=== PATIENT | male | born 1940 | race Caucasian/White ===

== ENCOUNTER 2020-12-07 10:43 | Observation (INO) ==
[2020-12-07 11:28] LABS: Basophils % 0.5 % (0.0-0.8); Eosinophils % 1.1 % (0.00-10.9); Hematocrit 33.1 VOL% (42.0-52.0); Hemoglobin 11.3 GM/DL (14.0-18.0); Immature Granulocytes % 0.5 %; Immature Granulocytes Absolute 0.02 #; Lymphocytes # 1.1 10*3/uL (1.4-4.0); Mean Corpuscular HGB Conc 34.1 GM/DL (32-36); Mean Corpuscular Volume 104.4 FL (87-102); Mean Platelet Volume 10.5 FL (9.6-12.0); Monocytes % 15.8 % (1.7-12.7); Neutrophils % 53.1 % (38.7-73.9); Platelet Count 178 T/CUMM (130-400); Red Blood Count 3.17 MC/CUMM (3.8-5.5); Red Cell Distribution Width 14.1 % (9.3-17.3); White Blood Count 3.7 T/CUMM (4-12)
[2020-12-07 11:40] LABS: Albumin 3.3 G/DL (3.4-5.0); Bilirubin,Total 0.5 MG/DL (0.20-1.00); Calcium 8.6 MG/DL (8.5-10.1); Osmolality,Calculated 273.1 MOS/KG (273-304); Potassium 4.2 MMOL/L (3.5-5.1); Total Protein 6.5 G/DL (6.4-8.2)
[2020-12-07 12:06] LABS: INR 0.9; PT Patient Result 10.5 SECS (10.5-12.0)
[2020-12-07 12:26] LABS: Band Neutrophils 1 % (0-10); Lymphocytes 25 % (20-55); Metamyelocytes 1 %; Nucleated Red Blood Cells 1 (0-5); Partial Thromboplastin Time < 20.0 SECS (23.9-33.8); Segmented Neutrophils 62 % (50-85); Total Cells Counted 100
[2020-12-07 12:29] LABS: Anisocytosis 1+; Atypical Lymphocytes Few; Macrocytosis 1+; Platelet Estimate Adequate
[2020-12-07 12:30] LABS: Polychromasia Few
[2020-12-07] MEDS ORDERED: GLUCAGON 1 MG VIAL IM PRN ×2 (14:01)
[2020-12-07] MEDS ORDERED: DEXTROSE 50% 25 GM/50 ML VIAL IV PRN ×2 (14:01)
[2020-12-07] MEDS ORDERED: ACETAMINOPHEN 325 MG TABLET PO PRN (14:01)
[2020-12-07] MEDS ORDERED: ONDANSETRON 4 MG/2 ML VIAL IV PRN (14:01)
[2020-12-07] MEDS ORDERED: DOCUSATE SODIUM 100 MG CAPSULE PO PRN (14:01)
[2020-12-07] MEDS ORDERED: hydrALAZINE 20 MG/1 ML VIAL IV PRN (14:01)
[2020-12-07 14:15] LABS: Bilirubin,Urine Negative (Negative); Blood, Urine Negative (Negative); Glucose,Urine (UA) Negative (Negative); Hyaline Casts,Urine 5 /LPF (0-3); Ketones,Urine 20 mg/dL (Negative); Mucus,Urine Occasional /LPF (Occasional); Nitrite,Urine Negative (Negative); Protein,Urine 30 MG/DL; RBC,Urine 1 /HPF (0-4); Sperm,Urine Few /HPF (Negative); Urine Appearance CLEAR (Clear); Urine Color Yellow (Yellow); Urine Specific Gravity 1.016 (1.001-1.035); Urine Urobilinogen < 2.0 EU/DL (0.2-1.0)
[2020-12-07] MEDS ORDERED: ENOXAPARIN 40 MG/0.4 ML SYRINGE SUBCUT SCH (14:30)
[2020-12-07] MEDS ORDERED: MAGNESIUM SULF RIDER 2 GM/50 ML PREMIX IV PRN (14:55)
[2020-12-07] MEDS ORDERED: MAGNESIUM SULF RIDER 4 GM/100 ML PREMIX IV PRN (14:55)
[2020-12-07] MEDS ORDERED: LORazepam 2 MG/1 ML VIAL IV PRN (14:57)
[2020-12-07 17:23] LABS: Hematocrit 30.7 VOL% (42.0-52.0); Hemoglobin 10.8 GM/DL (14.0-18.0)
[2020-12-07] MEDS: INSULIN LISPRO 100 UNIT/ML SUBCUT SCH ×2 (17:55→20:58)
[2020-12-07] MEDS: SODIUM CHLORIDE 0.9% 1,000 ML IV SCH (18:02)
[2020-12-07] MEDS: levETIRAcetam 500 MG TABLET PO SCH (20:56)
[2020-12-07] MEDS ORDERED: levETIRAcetam 500 MG TABLET PO SCH (21:00)
[2020-12-08 00:48] LABS: Hematocrit 29.3 VOL% (42.0-52.0)
[2020-12-08] MEDS: ZALEPLON 5 MG CAPSULE PO PRN ×2 (01:45→20:12)
[2020-12-08 05:15] LABS: Basophils % 0.5 % (0.0-0.8); Eosinophils % 0.5 % (0.00-10.9); Hematocrit 29.1 VOL% (42.0-52.0); Hemoglobin 9.9 GM/DL (14.0-18.0); Immature Granulocytes % 0.5 %; Immature Granulocytes Absolute 0.02 #; Lymphocytes # 0.8 10*3/uL (1.4-4.0); Lymphocytes % 20.4 % (21.2-54.2); Mean Corpuscular Volume 104.3 FL (87-102); Monocytes % 11.6 % (1.7-12.7); Neutrophils % 66.5 % (38.7-73.9); Platelet Count 151 T/CUMM (130-400); Red Blood Count 2.79 MC/CUMM (3.8-5.5); Red Cell Distribution Width 14.1 % (9.3-17.3); White Blood Count 3.9 T/CUMM (4-12)
[2020-12-08 05:35] LABS: Albumin 2.8 G/DL (3.4-5.0); Bilirubin,Total 0.6 MG/DL (0.20-1.00); Calcium 8.1 MG/DL (8.5-10.1); Osmolality,Calculated 272.8 MOS/KG (273-304); Potassium 3.5 MMOL/L (3.5-5.1); Risk Ratio 1.88; Total Protein 5.6 G/DL (6.4-8.2); VLDL Cholesterol 10.2 MG/DL
[2020-12-08] MEDS: INSULIN LISPRO 100 UNIT/ML SUBCUT SCH ×4 (08:32→20:21)
[2020-12-08 08:48] LABS: Hematocrit 29.8 VOL% (42.0-52.0); Hemoglobin 10.2 GM/DL (14.0-18.0)
[2020-12-08] MEDS: FOLIC ACID 1 MG TABLET PO SCH (09:26)
[2020-12-08] MEDS: MULTIVITAMIN (CENTRUM) TABLET PO SCH (09:26)
[2020-12-08] MEDS: PANTOPRAZOLE 40 MG TABLET PO SCH (09:27)
[2020-12-08] MEDS: SODIUM CHLORIDE 0.9% 1,000 ML IV SCH ×2 (09:27→20:13)
[2020-12-08] MEDS: THIAMINE 100 MG TABLET PO SCH (09:27)
[2020-12-08] MEDS: levETIRAcetam 500 MG TABLET PO SCH ×2 (09:27→20:12)
[2020-12-08] MEDS: carvediloL 25 MG TABLET PO SCH (17:50)
[2020-12-08] MEDS: MAGNESIUM OXIDE 400 MG TABLET PO SCH (20:12)
[2020-12-08] MEDS ORDERED: SIMVASTATIN 20 MG TABLET PO SCH (21:00)
[2020-12-09] MEDS: INSULIN LISPRO 100 UNIT/ML SUBCUT SCH (07:14)
[2020-12-09 07:22] VITALS: BP 157/69
[2020-12-09] MEDS ORDERED: ASPIRIN EC 81 MG TABLET PO SCH (09:00)
[2020-12-09] MEDS: THIAMINE 100 MG TABLET PO SCH (09:16)
[2020-12-09] MEDS: levETIRAcetam 500 MG TABLET PO SCH (09:16)
[2020-12-09] MEDS: FOLIC ACID 1 MG TABLET PO SCH (09:16)
[2020-12-09] MEDS: MULTIVITAMIN (CENTRUM) TABLET PO SCH (09:17)
[2020-12-09] MEDS: MAGNESIUM OXIDE 400 MG TABLET PO SCH (09:18)
[2020-12-09] MEDS: PANTOPRAZOLE 40 MG TABLET PO SCH (09:19)
[2020-12-09] MEDS: carvediloL 25 MG TABLET PO SCH (09:19)
[2020-12-09] MEDS: SODIUM CHLORIDE 0.9% 1,000 ML IV SCH (11:43)
== END 2020-12-09 11:45 | disposition home or self-care (01) ==
LOC: N.EDINP 10:43 → N.ED 10:43 → N.5E 16:17
PROVIDERS: ADMIT Internal Medicine; ATTEND Internal Medicine

== ENCOUNTER 2021-03-16 14:49 | Inpatient (IN) ==
[2021-03-16 16:01] LABS: ABG Base Excess 6.9 MMOL/L (-2.5-2.5); ABG HCO3 29.7 MMOL/L (20-26); ABG Oxygen Saturation 36.4 % (95-100); ABG PCO2 51.7 MM HG (35-48); ABG PH 7.409 (7.35-7.45); ABG TCO2 30.4 MMOL/L (23-27)
[2021-03-16 16:04] LABS: ABG PO2 26.2 MM HG (80-95)
[2021-03-16 16:05] LABS: Basophils % 0.3 % (0.0-0.8); Eosinophils # 0.1 10*3/uL (0.0-0.87); Eosinophils % 0.7 % (0.00-10.9); Hematocrit 27.7 VOL% (42.0-52.0); Hemoglobin 8.9 GM/DL (14.0-18.0); Immature Granulocytes % 0.4 %; Immature Granulocytes Absolute 0.03 #; Lymphocytes % 13.5 % (21.2-54.2); Mean Corpuscular HGB Conc 32.1 GM/DL (32-36); Mean Corpuscular Volume 94.5 FL (87-102); Mean Platelet Volume 9.4 FL (9.6-12.0); Neutrophils % 76.1 % (38.7-73.9); Platelet Count 222 T/CUMM (130-400); Red Blood Count 2.93 MC/CUMM (3.8-5.5); Red Cell Distribution Width 14.8 % (9.3-17.3); White Blood Count 7.1 T/CUMM (4-12)
[2021-03-16 16:33] LABS: Alanine Aminotransferase 36 U/L (16-61); Albumin 2.9 G/DL (3.4-5.0); Alkaline Phosphatase 77 U/L (45-117); Aspartate Amino Transferase 35 U/L (0-37); Bilirubin,Total < 0.39 MG/DL (0.20-1.00); Blood Urea Nitrogen 26 MG/DL (7-18); Calcium 8.7 MG/DL (8.5-10.1); Carbon Dioxide 30 MMOL/L (21-32); Estimated Glom Filtration Rate 68 ML/MIN; Glucose 120 MG/DL (74-106); Osmolality,Calculated 284.4 MOS/KG (273-304); Potassium 4.2 MMOL/L (3.5-5.1); Sodium 140 MMOL/L (136-145); Total Protein 6.2 G/DL (6.4-8.2)
[2021-03-16] MEDS ORDERED: methylPREDNISolone SOD SUC 125 MG/2 ML VIAL IV STA (17:28)
[2021-03-16] MEDS ORDERED: ALBUTEROL/IPRATROPIUM 3 ML NEB RESP TX STA (17:28)
[2021-03-16] MEDS ORDERED: DEXTROSE 50% 25 GM/50 ML SYRINGE IV PRN (19:47)
[2021-03-16] MEDS ORDERED: GLUCAGON 1 MG VIAL IM PRN ×2 (19:47)
[2021-03-16] MEDS ORDERED: DEXTROSE 50% 25 GM/50 ML VIAL IV PRN (19:47)
[2021-03-16] MEDS ORDERED: ALBUTEROL/IPRATROPIUM 3 ML NEB RESP TX PRN (19:47)
[2021-03-16] MEDS ORDERED: ACETAMINOPHEN 325 MG TABLET PO PRN (19:47)
[2021-03-16] MEDS ORDERED: SIMETHICONE CHEW 125 MG TABLET PO PRN (19:47)
[2021-03-16] MEDS ORDERED: CALCIUM CARBONATE CHEW 500 MG TABLET PO PRN (19:47)
[2021-03-16] MEDS ORDERED: DOCUSATE SODIUM 100 MG CAPSULE PO PRN (19:47)
[2021-03-16] MEDS: INSULIN LISPRO 100 UNIT/ML SUBCUT SCH (21:58)
[2021-03-16] MEDS: ENOXAPARIN 40 MG/0.4 ML SYRINGE SUBCUT SCH (21:59)
[2021-03-17] MEDS: levETIRAcetam 500 MG TABLET PO SCH ×3 (00:25→21:06)
[2021-03-17] MEDS: cefTRIAXone 1,000 MG VIAL IV SCH ×2 (00:28→21:06)
[2021-03-17] MEDS: AZITHROMYCIN INJ 500 MG in SODIUM CHLORIDE 0.9% 250 ML IV SCH ×2 (00:30→21:05)
[2021-03-17] MEDS: ALBUTEROL/IPRATROPIUM 3 ML NEB RESP TX SCH ×4 (01:00→20:10)
[2021-03-17] MEDS: methylPREDNISolone SOD SUC 40 MG/1 ML VIAL IV SCH ×3 (01:51→18:30)
[2021-03-17 05:21] LABS: Basophils % 0.2 % (0.0-0.8); Hematocrit 29.4 VOL% (42.0-52.0); Hemoglobin 9.4 GM/DL (14.0-18.0); Immature Granulocytes % 0.9 %; Immature Granulocytes Absolute 0.05 #; Lymphocytes # 0.5 10*3/uL (1.4-4.0); Lymphocytes % 8.2 % (21.2-54.2); Mean Corpuscular Volume 95.8 FL (87-102); Neutrophils % 88.7 % (38.7-73.9); Platelet Count 222 T/CUMM (130-400); Red Blood Count 3.07 MC/CUMM (3.8-5.5); Red Cell Distribution Width 14.8 % (9.3-17.3); White Blood Count 5.5 T/CUMM (4-12)
[2021-03-17 05:34] LABS: Alanine Aminotransferase 32 U/L (16-61); Albumin 2.8 G/DL (3.4-5.0); Alkaline Phosphatase 71 U/L (45-117); Aspartate Amino Transferase 19 U/L (0-37); Bilirubin,Total < 0.39 MG/DL (0.20-1.00); Blood Urea Nitrogen 26 MG/DL (7-18); Carbon Dioxide 31 MMOL/L (21-32); Estimated Glom Filtration Rate 68 ML/MIN; Glucose 148 MG/DL (74-106); Potassium 3.9 MMOL/L (3.5-5.1); Sodium 143 MMOL/L (136-145); Total Protein 6.6 G/DL (6.4-8.2)
[2021-03-17] MEDS: NICOTINE 21 MG/24 HR PATCH TRANSDERM SCH (08:39)
[2021-03-17] MEDS: SIMVASTATIN 20 MG TABLET PO SCH (08:40)
[2021-03-17] MEDS: MAGNESIUM OXIDE 400 MG TABLET PO SCH ×2 (08:40→21:06)
[2021-03-17] MEDS: FOLIC ACID 1 MG TABLET PO SCH (08:40)
[2021-03-17] MEDS: PANTOPRAZOLE 40 MG TABLET PO SCH (08:40)
[2021-03-17] MEDS ORDERED: THIAMINE 100 MG TABLET PO SCH (09:00)
[2021-03-17] MEDS ORDERED: carvediloL 25 MG TABLET PO SCH (09:00)
[2021-03-17] MEDS: INSULIN LISPRO 100 UNIT/ML SUBCUT SCH ×4 (11:04→21:07)
[2021-03-17] MEDS: ASPIRIN EC 81 MG TABLET PO SCH (13:07)
[2021-03-17] MEDS: guaiFENesin 200 MG/10 ML UDCUP PO PRN ×2 (15:58→21:05)
[2021-03-17] MEDS: ENOXAPARIN 40 MG/0.4 ML SYRINGE SUBCUT SCH (21:06)
[2021-03-18] MEDS: ALBUTEROL/IPRATROPIUM 3 ML NEB RESP TX SCH ×4 (01:57→20:20)
[2021-03-18] MEDS: methylPREDNISolone SOD SUC 40 MG/1 ML VIAL IV SCH ×3 (02:07→17:30)
[2021-03-18] MEDS: INSULIN LISPRO 100 UNIT/ML SUBCUT SCH ×4 (07:30→21:57)
[2021-03-18] MEDS: NICOTINE 21 MG/24 HR PATCH TRANSDERM SCH (08:43)
[2021-03-18] MEDS: SIMVASTATIN 20 MG TABLET PO SCH (08:44)
[2021-03-18] MEDS: CYANOCOBALAMIN 500 MCG TABLET PO SCH (08:44)
[2021-03-18] MEDS: ASPIRIN EC 81 MG TABLET PO SCH (08:44)
[2021-03-18] MEDS: PANTOPRAZOLE 40 MG TABLET PO SCH (08:44)
[2021-03-18] MEDS: FOLIC ACID 1 MG TABLET PO SCH (08:44)
[2021-03-18] MEDS: levETIRAcetam 500 MG TABLET PO SCH ×2 (08:44→21:57)
[2021-03-18] MEDS: MAGNESIUM OXIDE 400 MG TABLET PO SCH ×2 (08:44→21:57)
[2021-03-18] MEDS ORDERED: ERGOCALCIFEROL 50,000 UNIT CAPSULE PO SCH (09:00)
[2021-03-18] MEDS: guaiFENesin 200 MG/10 ML UDCUP PO PRN (11:15)
[2021-03-18] MEDS: ENOXAPARIN 40 MG/0.4 ML SYRINGE SUBCUT SCH (21:57)
[2021-03-18] MEDS: cefTRIAXone 1,000 MG VIAL IV SCH (21:58)
[2021-03-18] MEDS: AZITHROMYCIN INJ 500 MG in SODIUM CHLORIDE 0.9% 250 ML IV SCH (21:58)
[2021-03-19] MEDS: ALBUTEROL/IPRATROPIUM 3 ML NEB RESP TX SCH ×2 (00:30→07:00)
[2021-03-19] MEDS: methylPREDNISolone SOD SUC 40 MG/1 ML VIAL IV SCH ×2 (02:55→09:18)
[2021-03-19] MEDS: CYANOCOBALAMIN 500 MCG TABLET PO SCH (09:12)
[2021-03-19] MEDS: ASPIRIN EC 81 MG TABLET PO SCH (09:12)
[2021-03-19] MEDS: levETIRAcetam 500 MG TABLET PO SCH (09:13)
[2021-03-19] MEDS: FOLIC ACID 1 MG TABLET PO SCH (09:13)
[2021-03-19] MEDS: SIMVASTATIN 20 MG TABLET PO SCH (09:14)
[2021-03-19] MEDS: MAGNESIUM OXIDE 400 MG TABLET PO SCH (09:14)
[2021-03-19] MEDS: PANTOPRAZOLE 40 MG TABLET PO SCH (09:14)
[2021-03-19] MEDS: INSULIN LISPRO 100 UNIT/ML SUBCUT SCH ×2 (09:15→11:30)
[2021-03-19] MEDS: NICOTINE 21 MG/24 HR PATCH TRANSDERM SCH (09:17)
[2021-03-19] MEDS: AZITHROMYCIN INJ 500 MG in SODIUM CHLORIDE 0.9% 250 ML IV SCH (11:30)
[2021-03-19 12:04] VITALS: BP 164/73
[2021-03-24] MEDS ORDERED: ERGOCALCIFEROL 50000 UNIT PO SCH (09:00)
== END 2021-03-19 12:05 | DRG 190 ==
LOC: EDBD → EDUNIT# → N.ED 14:49 → SUATTDRO 19:47 → N.EDINP 19:47 → N.5E 03-17 01:23
PROVIDERS: ADMIT Internal Medicine; ATTEND Internal Medicine